=== PATIENT | female | born 1985 | race Two or more races ===

== ENCOUNTER 2023-03-30 12:09 | Outpatient (CLI) | payer OTHER | END 2023-03-30 12:22 | disposition home or self-care (01) | LOC: RAD 12:09 | PROVIDERS: ATTEND Orthopaedic Surgery | DX: M25.561 Pain in right knee (principal); M25.562 Pain in left knee; M25.551 Pain in right hip; M25.552 Pain in left hip; M46.1 Sacroiliitis, not elsewhere classified; M54.6 Pain in thoracic spine; M54.59 Other low back pain ==